=== PATIENT | female | born 1990 | race Caucasian/White ===

== ENCOUNTER 2021-04-27 04:02 | Emergency (ER) | payer BC ==
[2021-04-27 04:40] LABS: #Eosinphils 0.2 thou/uL (0.0-0.7); #Lymphocytes 2.2 thou/uL (1.20-3.40); #Monocytes 0.6 thou/uL (0.11-0.59); #Neutrophils 7.4 thou/uL (1.40-6.50); %Basophils 0.2 % (0.0-1.0); %Eosinophils 1.5 % (0.0-10.0); %Lymphocytes 21.1 % (21.0-51.0); %Monocytes 5.4 % (0.0-10.0); %Neutrophils 71.8 % (42.0-75.0); Hemoglobin 11.6 g/dL (12.0-16.0); Mean Corpuscular HGB CONC 35.1 g/dL (32.0-36.0); Mean Corpuscular Volume 88.3 fL (78.0-98.0); Mean Platelet Volume 6.9 fL (7.4-10.4); Platelet Count 352 thou/uL (130-400); Red Blood Cell (RBC) Count 3.75 mill/uL (4.20-5.40); White Blood Cell (WBC) Count 10.3 thou/uL (4.8-10.8)
[2021-04-27 05:01] LABS: ALT (SGPT) 9 U/L (8-55); AST (SGOT) 12 U/L (5-34); Albumin 3.6 g/dL (3.5-5.0); Alkaline Phosphatase 73 U/L (40-110); Anion Gap 15 mmol/L (10-20); BUN (Urea Nitrogen) 5 mg/dL (7.0-18.7); Bilirubin, Total 0.2 mg/dL (0.2-1.2); Calc. Creatinine Clearance 0 mL/min (70-130); Calcium 8.7 mg/dL (7.8-10.44); Carbon Dioxide 21 mmol/L (22-29); Chloride 104 mmol/L (98-107); Globulin 3.2 g/dL (2.4-3.5); Glucose 101 mg/dL (70-105); Lipase 29 U/L (8-78); Potassium 3.2 mmol/L (3.5-5.1); Protein, Total 6.8 g/dL (6.0-8.3); Sodium 137 mmol/L (136-145)
[2021-04-27 05:10] LABS: Bilirubin Negative (Negative); Blood, Urine 2+ (Negative); Clarity Turbid (Clear); Glucose, Urine (Dipstick) Normal (Negative); Ketone, Urine Negative (Negative); Leukocyte 25 Leu/uL (Negative); Nitrite Negative (Negative); Protein, Urine (Dipstick) 20 mg/dL (Neg-Trace); Specific Gravity, Urine 1.022 (1.002-1.036); Transitional Epithelial 0-3 HPF (None Seen); Urobilinogen Normal mg/dL (Less than 2)
[2021-04-27 05:12] LABS: Bacteria/HPF 1+ HPF (None Seen)
== END 2021-04-27 05:30 | disposition home or self-care (01) ==
LOC: ERS 04:02
DX: K80.20 Calculus of gallbladder without cholecystitis without obstruction (principal); N30.00 Acute cystitis without hematuria
CPT/HCPCS: 36415; 76705; 80053; 81003; 81015; 83690; 85025

== ENCOUNTER 2021-11-28 09:25 | Outpatient (CLI) | payer BC ==
[2021-11-28 10:43] LABS: #Eosinphils 0.3 10x3/uL (0.0-0.5); #Monocytes 0.4 10x3/uL (0.0-1.1); #Neutrophils 3.2 10x3/uL (1.5-8.4); %Basophils 0.7 % (0.0-2.0); %Eosinophils 4.4 % (0.0-6.0); %Lymphocytes 32.9 % (18.0-47.0); %Monocytes 6.1 % (0.0-10.0); %Neutrophils 55.7 % (40.0-75.0); Hemoglobin 12.2 g/dL (12.0-15.5); Mean Corpuscular HGB CONC 31.6 g/dL (32.0-36.0); Mean Corpuscular Hemoglobin 27.1 pg (27.0-33.0); Mean Corpuscular Volume 85.6 fl (81.6-98.3); Mean Platelet Volume 9.7 fl (7.4-10.4); Platelet Count 365 10x3/uL (150-450); RBC Distribution Width 12.4 % (11.5-14.5); Red Blood Cell (RBC) Count 4.51 10x6/uL (3.90-5.03); White Blood Cell (WBC) Count 5.7 10x3/uL (3.5-10.5)
[2021-11-28 11:10] LABS: ALT (SGPT) 20 U/L (8-55); AST (SGOT) 15 U/L (5-34); Albumin 4.3 g/dL (3.5-5.0); Alkaline Phosphatase 61 U/L (40-110); Anion Gap 12 mmol/L (10-20); BUN (Urea Nitrogen) 10 mg/dL (7.0-18.7); Bilirubin, Direct 0.1 mg/dL (0.1-0.3); Bilirubin, Total 0.4 mg/dL (0.2-1.2); Calc. Creatinine Clearance 0 mL/min (70-130); Calcium 9.2 mg/dL (7.8-10.44); Carbon Dioxide 24 mmol/L (22-29); Chloride 107 mmol/L (98-107); Glucose 90 mg/dL (70-105); Potassium 4.7 mmol/L (3.5-5.1); Protein, Total 7.1 g/dL (6.0-8.3); Sodium 138 mmol/L (136-145)
[2021-11-28 20:44] LABS: SARS-CoV-2 PCR by NAA Not Detected (NotDetected)
== END 2021-11-28 09:26 | disposition home or self-care (01) ==
LOC: LABBT 09:25
PROVIDERS: ATTEND Surgery
DX: Z01.812 Encounter for preprocedural laboratory examination (principal); K80.20 Calculus of gallbladder without cholecystitis without obstruction; Z20.822 Contact with and (suspected) exposure to COVID-19
CPT/HCPCS: 80048; 80076; 85025; U0003; U0005

== ENCOUNTER 2021-12-01 06:55 | Day surgery (SDC) | payer BC ==
[2021-11-23 10:39] VITALS: BMI 29.5
[2021-12-01] MEDS ORDERED: Scopolamine 1.5 mg/72 hour Patch ONE (07:27)
[2021-12-01] MEDS ORDERED: Bupivacaine 0.25% HCL 30 ML VIAL ONE (08:23)
[2021-12-01] MEDS ORDERED: Fentanyl 100 MCG/2 ML VIAL ONE ×2 (08:25→10:44)
[2021-12-01] MEDS ORDERED: Midazolam HCl 2 mg/2 ml Vial ONE (08:39)
[2021-12-01] MEDS ORDERED: ceFAZolin 2 GM/Dextrose 50 ML IVPB ONE (08:41)
[2021-12-01] MEDS ORDERED: PROPOFOL 200 MG/20 ML VIAL ONE (08:45)
[2021-12-01] MEDS ORDERED: Dexamethasone 20 MG/5 ML VIAL ONE (08:45)
[2021-12-01] MEDS ORDERED: Glycopyrrolate 0.2 MG/ML 5 ML SYRINGE ONE (08:45)
[2021-12-01] MEDS ORDERED: Ketorolac Tromethamine 30 MG/ML VIAL ONE (08:45)
[2021-12-01] MEDS ORDERED: Lidocaine 1% PF 5 ML VIAL ONE (08:45)
[2021-12-01] MEDS ORDERED: Ondansetron PF 4 MG/2 ML Vial ONE ×2 (08:45→11:05)
[2021-12-01] MEDS ORDERED: Rocuronium Bromide 10 MG/ML (10ML VIAL) ONE (08:45)
== END 2021-12-01 13:33 | disposition home or self-care (01) ==
LOC: SDC 06:55
PROVIDERS: ATTEND Surgery
PROC: 0FT44ZZ Resection of Gallbladder, Percutaneous Endoscopic Approach (ICD-10-PCS; principal; 2021-12-01)
DX: K80.10 Calculus of gallbladder with chronic cholecystitis without obstruction (principal); Z91.018 Allergy to other foods
CPT/HCPCS: 88304; C1713; J0690; J1100; J1885; J2250; J2405; J2704; J3010; S0020